=== PATIENT | male | born 1995 | race Caucasian/White ===

== ENCOUNTER 2021-05-21 15:36 | Emergency (ER) | payer SELFPAY ==
[~2021-05-21] VITALS: Ht 177.8 cm; Wt 97.7 kg
[2021-05-21 17:29] LABS: BASOPHILS # (AUTO) 0.1 X10'3 (0-0.2); BASOPHILS % (AUTO) 0.4 % (0-1); EOSINOPHILS # (AUTO) 0.3 X10'3 (0-0.9); EOSINOPHILS % (AUTO) 2.1 % (0-6); HEMATOCRIT 46.4 % (42.0-52.0); HEMOGLOBIN 15.7 g/dl (14.0-17.9); LYMPHOCYTES # (AUTO) 1.5 X10'3 (1.1-4.8); LYMPHOCYTES % (AUTO) 10.4 % (21-51); MEAN CORPUSCULAR HEMOGLOBIN 29.1 PG (27.0-31.0); MEAN CORPUSCULAR HGB CONC 33.9 g/dL (33.0-36.5); MEAN PLATELET VOLUME 8.8 FL (7.4-10.4); MONOCYTES # (AUTO) 0.9 X10'3 (0-0.9); MONOCYTES % (AUTO) 6.1 % (2-12); NEUTROPHILS # (AUTO) 11.3 X10'3 (1.8-7.7); PLATELET COUNT 292 X10'3 (140-440); RED BLOOD COUNT 5.39 X10'6 (4.70-6.10); RED CELL DISTRIBUTION WIDTH 13.6 % (11.5-14.5); WHITE BLOOD COUNT 13.9 X10'3 (4.5-11.0)
[2021-05-21 17:45] LABS: ALANINE AMINOTRANSFERASE 48 U/L (12-78); ALBUMIN 3.9 G/DL (3.4-5.0); ALBUMIN/GLOBULIN RATIO 1.1 (1.1-1.5); ALKALINE PHOSPHATASE 122 IU/L (46-116); ANION GAP 8 (8-16); ASPARTATE AMINO TRANSFERASE 16 U/L (10-37); BILIRUBIN,TOTAL 0.3 MG/DL (0.1-1.0); BLOOD UREA NITROGEN 8 MG/DL (7-18); BUN/CREATININE RATIO 8.2 (5.4-32.0); CHLORIDE 106 MMOL/L (99-107); CREATININE 0.98 MG/DL (0.60-1.10); GLUCOSE 98 MG/DL (70-104); POTASSIUM 4.1 MMOL/L (3.5-5.1); SODIUM 144 MMOL/L (135-145); TOTAL CARBON DIOXIDE 29.6 MMOL/L (24-32); TOTAL PROTEIN 7.4 G/DL (6.4-8.2); eGFR > 90 ML/MIN
[2021-05-21 20:11] VITALS: BP 118/71
== END 2021-05-21 21:56 | disposition home or self-care (01) ==
LOC: ER 15:37
DX: R55 Syncope and collapse (principal); R42 Dizziness and giddiness; R51.9 Headache, unspecified
CPT/HCPCS: 36415; 70450; 71045; 80053; 84484; 85025; 93005; 99285

== ENCOUNTER 2021-12-22 13:47 | Emergency (ER) | payer MEDICAID, OTHER ==
[~2021-12-22] VITALS: Ht 175.3 cm; Wt 93.6 kg
[2021-12-22 14:17] VITALS: BP 130/93
[2021-12-22] MEDS ORDERED: PENI500T2 PO (14:22)
[2021-12-22] MEDS ORDERED: HYDR-3972 PO (14:22)
[2021-12-22] MEDS ORDERED: IBUP-1986 PO (14:22)
== END 2021-12-22 16:48 | disposition home or self-care (01) ==
LOC: ER 13:48
DX: K02.9 Dental caries, unspecified (principal); F12.10 Cannabis abuse, uncomplicated; F17.200 Nicotine dependence, unspecified, uncomplicated; Z79.899 Other long term (current) drug therapy
CPT/HCPCS: 99283

== ENCOUNTER 2022-05-02 00:41 | Emergency (ER) | payer MEDICAID, OTHER ==
[~2022-05-02] VITALS: Ht 180.3 cm; Wt 88.6 kg
[~2022-05-02 00:41] MED LIST: IBUP-1986 PO
[2022-05-02 00:59] VITALS: BP 136/89
[2022-05-02] MEDS: LIDOcaine 1% w/EPI 1:100,000 30ml vial (MDV) IJ ONE ×2 (01:21→01:31)
== END 2022-05-02 01:38 | disposition home or self-care (01) ==
LOC: ER 00:42
DX: K08.89 Other specified disorders of teeth and supporting structures (principal); F12.10 Cannabis abuse, uncomplicated; Z79.1 Long term (current) use of non-steroidal anti-inflammatories (NSAID)
CPT/HCPCS: 99282

== ENCOUNTER 2022-07-25 22:59 | Emergency (ER) | payer SELFPAY ==
[~2022-07-25] VITALS: Ht 175.3 cm; Wt 85.0 kg
[2022-07-26] MEDS ORDERED: morphine IR (immed. release) 30mg tablet PO STA (00:35)
--- NOTE | 2022-07-26 01:19 | NUR ---
discussed giving pt immediate release morphine pill with pt and doctor prior to discharge. Pt states he was recently on a prescription of 15 mg morphine pills at home but finished his prescription a few weeks ago. MD was comfortable with treat and release for this reason. Pt was taken home by father whom was in waiting room.
[2022-07-26 01:22] VITALS: BP 128/84
== END 2022-07-26 01:25 | disposition home or self-care (01) ==
LOC: ER 22:59
DX: K08.89 Other specified disorders of teeth and supporting structures (principal); Z88.5 Allergy status to narcotic agent
CPT/HCPCS: 99283

== ENCOUNTER 2022-07-29 03:55 | Emergency (ER) | payer SELFPAY ==
[~2022-07-29] VITALS: Ht 175.3 cm; Wt 81.8 kg
[2022-07-29 04:08] VITALS: BP 132/77
== END 2022-07-29 08:02 | disposition left against medical advice (07) ==
LOC: ER 03:56
DX: M54.9 Dorsalgia, unspecified (principal); Z53.21 Procedure and treatment not carried out due to patient leaving prior to being seen by health care provider

== ENCOUNTER 2022-08-12 18:23 | Emergency (ER) | payer SELFPAY ==
[~2022-08-12] VITALS: Ht 175.3 cm; Wt 82.6 kg
[2022-08-12 19:45] VITALS: BP 110/60
[2022-08-12] MEDS ORDERED: HYDR-3965 PO (20:08)
[2022-08-12] MEDS ORDERED: AMOX-117 PO (20:08)
[2022-08-12] MEDS ORDERED: amox tr/potassium clavulanate 875/125mg TAB PO ONE (20:10)
[2022-08-12] MEDS ORDERED: HYDROcodone/acetaminophen 5mg/325mg tablet PO ONE (20:10)
== END 2022-08-12 20:30 | disposition home or self-care (01) ==
LOC: ER 18:24
DX: K08.89 Other specified disorders of teeth and supporting structures (principal); F12.90 Cannabis use, unspecified, uncomplicated; Z79.2 Long term (current) use of antibiotics; Z79.899 Other long term (current) drug therapy
CPT/HCPCS: 99283

== ENCOUNTER 2022-09-04 18:25 | Emergency (ER) | payer SELFPAY ==
[~2022-09-04] VITALS: Ht 175.3 cm; Wt 82.2 kg
[2022-09-04 18:48] VITALS: BP 146/91
[2022-09-04] MEDS ORDERED: ondansetron 4mg rapidly disintigrating tab PO ONE (19:25)
[2022-09-04] MEDS ORDERED: HYDROcodone/acetaminophen 10/325mg tab PO ONE (19:25)
== END 2022-09-04 20:12 | disposition home or self-care (01) ==
LOC: ER 18:27
DX: K08.89 Other specified disorders of teeth and supporting structures (principal); F12.10 Cannabis abuse, uncomplicated; Z79.1 Long term (current) use of non-steroidal anti-inflammatories (NSAID)
CPT/HCPCS: 99283

== ENCOUNTER 2022-11-20 19:36 | Emergency (ER) | payer MEDICAID ==
[~2022-11-20] VITALS: Ht 175.3 cm; Wt 81.8 kg
[2022-11-20] MEDS ORDERED: AMOX500C2 PO (21:03)
[2022-11-20] MEDS ORDERED: IBUP-1986 PO (21:03)
[2022-11-20] MEDS ORDERED: amox tr/potassium clavulanate 875/125mg TAB PO ONE (21:05)
[2022-11-20] MEDS ORDERED: ketorolac trometh inj. 60 MG/2 ML VIAL IM ONE (21:05)
[2022-11-20 21:25] VITALS: BP 135/87
== END 2022-11-20 21:26 | disposition home or self-care (01) ==
LOC: ER 19:38
DX: K02.9 Dental caries, unspecified (principal); K08.89 Other specified disorders of teeth and supporting structures
CPT/HCPCS: 96372; 99283; J1885

== ENCOUNTER 2023-07-16 11:01 | Emergency (ER) | payer BC ==
[~2023-07-16] VITALS: Ht 175.3 cm; Wt 75.0 kg
[2023-07-16 11:07] VITALS: BP 136/81; PULSE 70; TEMP 98.6; O2SAT 99
[2023-07-16] MEDS ORDERED: ketorolac trometh. 30mg/ml inj. IM ONE (11:10)
[2023-07-16] MEDS ORDERED: AMOX-117 PO (11:15)
[2023-07-16] MEDS ORDERED: HYDR-3965 PO (11:15)
--- NOTE | 2023-07-16 11:22 | NUR ---
ELECTRICAL RESEARCH ENGINEER ASSESSMENT REVIEWED BY ANDREI RN; APPROVED
[2023-07-16 11:24] VITALS: RESP 18
== END 2023-07-16 11:26 | disposition home or self-care (01) ==
LOC: ER 11:01
DX: K08.89 Other specified disorders of teeth and supporting structures (principal); F12.90 Cannabis use, unspecified, uncomplicated; Z79.1 Long term (current) use of non-steroidal anti-inflammatories (NSAID)
CPT/HCPCS: 96372; 99283; J1885

== ENCOUNTER 2023-08-11 01:07 | Emergency (ER) | payer BC ==
[~2023-08-11] VITALS: Ht 177.8 cm; Wt 70.0 kg
[~2023-08-11 01:07] MED LIST changes: +HYDR-3965 PO
[2023-08-11 01:11] VITALS: BP 119/72; PULSE 69; RESP 16; TEMP 98.2; O2SAT 99
[2023-08-11 02:49] LABS: BASOPHILS # (AUTO) 0.1 X10'3 (0-0.2); BASOPHILS % (AUTO) 0.3 % (0-1); EOSINOPHILS # (AUTO) 0.4 X10'3 (0-0.9); EOSINOPHILS % (AUTO) 2.1 % (0-6); HEMATOCRIT 41.5 % (42.0-52.0); HEMOGLOBIN 13.7 g/dl (14.0-17.9); LYMPHOCYTES # (AUTO) 2.1 X10'3 (1.1-4.8); LYMPHOCYTES % (AUTO) 10.7 % (21-51); MEAN CORPUSCULAR HEMOGLOBIN 29.4 PG (27.0-31.0); MEAN CORPUSCULAR VOLUME 89.2 FL (78-98); MEAN PLATELET VOLUME 8.1 FL (7.4-10.4); MONOCYTES # (AUTO) 1.2 X10'3 (0-0.9); MONOCYTES % (AUTO) 6.2 % (2-12); NEUTROPHILS # (AUTO) 15.9 X10'3 (1.8-7.7); NEUTROPHILS % (AUTO) 80.7 % (42-75); PLATELET COUNT 237 X10'3 (140-440); RED BLOOD COUNT 4.65 X10'6 (4.70-6.10); RED CELL DISTRIBUTION WIDTH 13.8 % (11.5-14.5); WHITE BLOOD COUNT 19.8 X10'3 (4.5-11.0)
[2023-08-11 03:01] LABS: ALANINE AMINOTRANSFERASE 25 U/L (12-78); ALBUMIN 3.6 G/DL (3.4-5.0); ALBUMIN/GLOBULIN RATIO 1.2 (1.1-1.5); ALKALINE PHOSPHATASE 80 IU/L (46-116); ANION GAP 7 (8-16); ASPARTATE AMINO TRANSFERASE 18 U/L (10-37); BILIRUBIN,TOTAL 0.3 MG/DL (0.1-1.0); BLOOD UREA NITROGEN 14 MG/DL (7-18); BUN/CREATININE RATIO 15.2 (10.0-20.0); CALCIUM 8.8 MG/DL (8.5-10.1); CHLORIDE 102 MMOL/L (99-107); CREATININE 0.92 MG/DL (0.60-1.10); GLUCOSE 124 MG/DL (70-104); POTASSIUM 3.1 MMOL/L (3.5-5.1); SODIUM 137 MMOL/L (135-145); TOTAL CARBON DIOXIDE 27.8 MMOL/L (24-32); TOTAL PROTEIN 6.6 G/DL (6.4-8.2); eCRCL 118 ML/MIN; eGFR > 90 ML/MIN
[2023-08-11] MEDS ORDERED: potassium Cl 20 mEq SR tablet PO STA (03:08)
== END 2023-08-11 03:36 | disposition left against medical advice (07) ==
LOC: ER 01:07
DX: S00.31XA Abrasion of nose, initial encounter (principal); R42 Dizziness and giddiness; E87.6 Hypokalemia; W22.8XXA Striking against or struck by other objects, initial encounter; Y93.39 Activity, other involving climbing, rappelling and jumping off; Y92.89 Other specified places as the place of occurrence of the external cause; Y99.8 Other external cause status
CPT/HCPCS: 36415; 80053; 85025; 93005; 99284

== ENCOUNTER → 2023-08-17 | Emergency (ER) | payer BC ==
[~2023-08-17] VITALS: Ht 177.8 cm; Wt 74.8 kg
[2023-08-17 16:08] VITALS: BP 118/66; PULSE 73; RESP 16; TEMP 99; O2SAT 98
== END | disposition left against medical advice (07) ==
LOC: ER 15:59
DX: K08.89 Other specified disorders of teeth and supporting structures (principal); Z53.21 Procedure and treatment not carried out due to patient leaving prior to being seen by health care provider
CPT/HCPCS: 99281

== ENCOUNTER 2023-09-26 19:47 | Emergency (ER) | payer BC ==
[~2023-09-26] VITALS: Ht 177.8 cm; Wt 75.0 kg
[~2023-09-26 19:47] MED LIST changes: -HYDR-3965 PO
[2023-09-26 20:01] VITALS: TEMP 98.3
[2023-09-26] MEDS ORDERED: ketorolac trometh inj. 60 MG/2 ML VIAL IM ONE (20:05)
[2023-09-26] MEDS ORDERED: CLIN300C54 PO (20:06)
[2023-09-26] MEDS ORDERED: HYDR-3965 PO (20:06)
[2023-09-26 20:42] VITALS: BP 109/61; PULSE 64; RESP 16; O2SAT 98
== END 2023-09-26 20:44 | disposition home or self-care (01) ==
LOC: ER 19:48
DX: K08.89 Other specified disorders of teeth and supporting structures (principal); F12.90 Cannabis use, unspecified, uncomplicated; Z79.2 Long term (current) use of antibiotics; Z79.1 Long term (current) use of non-steroidal anti-inflammatories (NSAID); Z79.899 Other long term (current) drug therapy
CPT/HCPCS: 96372; 99283; J1885

== ENCOUNTER 2024-02-27 04:45 | Emergency (ER) | payer BC, OTHER ==
[~2024-02-27] VITALS: Ht 175.3 cm; Wt 72.8 kg
[2024-02-27] MEDS ORDERED: NAPR-56 PO (05:24)
[2024-02-27] MEDS ORDERED: AMOX-580 PO (05:24)
[2024-02-27] MEDS ORDERED: HYDR-3965 PO (05:24)
[2024-02-27] MEDS: ketorolac trometh. 30mg/ml inj. IM ONE (05:48)
[2024-02-27] MEDS: CefTRIAXone 1000mg IM Kit (w/lidocaine diluent) IM ONE (05:48)
[2024-02-27 06:41] VITALS: BP 106/59; PULSE 57; RESP 16; TEMP 97.9; O2SAT 97
== END 2024-02-27 06:43 | disposition home or self-care (01) ==
LOC: ER 04:46
DX: K04.7 Periapical abscess without sinus (principal); K02.9 Dental caries, unspecified; F12.90 Cannabis use, unspecified, uncomplicated; Z79.1 Long term (current) use of non-steroidal anti-inflammatories (NSAID)
CPT/HCPCS: 96372; 99284; J0696; J1885

== ENCOUNTER 2025-04-23 09:23 | Emergency (ER) | payer SELFPAY ==
[~2025-04-23] VITALS: Ht 177.8 cm; Wt 80.0 kg
--- NOTE | 2025-04-23 09:51 | Physician Documentation ---
History of Present Illness Chief Complaint: Abdominal Pain Stated Complaint: ABD PAIN Time Seen by MD: 09:42 Primary Medical Doctor: VIRGILIO Source: patient Mode of Arrival: POV Exam Limitations: no limitations HPI Patient who woke up last night to go to work and had some mild abdominal pain. He did not think a whole lot of it but it just worsened overnight and he has had a lot of vomiting. Pain is generalized and mostly across the bottom and then up the middle. History of appendectomy as a child. States he has never had pain like this since that time. No other surgeries. Does smoke marijuana. No alcohol or tobacco use. Pain is moderate to severe. Medication Reconciliation Allergies: Coded Allergies: No Known Allergies (Unverified , 09/26/23) Scheduled Ibuprofen (Ibuprofen), 1 TAB PO Q8H Ibuprofen (Ibuprofen), 1 TAB PO Q8H Past Medical History Past Medical History: No Pertinent History Past Surgical History: no surgical history Alcohol Use: None Drug Use: marijuana Lives with: Father Lives In: Home Occupation: student Review of Systems All Other Systems at this time: Reviewed and Negative Physical Exam Vital Signs: Temperature: 97.8, Source: Temporal, Heart Rate: 64, Respiratory Rate: 16, BP: 137/82, Pulse Oximetry: 99, Weight: 80.000 Oxygen Flow Rate: 0 General Appearance: alert, other (Uncomfortable appearing) Neck: normal inspection, full range of motion Respiratory: no respiratory distress Chest: no accessory muscle use Gastrointestinal: normal palpation, other (Mildly tender across the top and in the left lower quadrant, negative Collier's) Extremities: normal range of motion, non-tender Neurologic: oriented x4 Psychiatric: normal mood/affect Skin: normal color, warm/dry Progress Results/Orders Results/Orders Orders - NOHEMI BURNETTE MD Urinalysis, Cult If Indicated (04/23/25 09:40) Cbc/Diff (04/23/25 09:40) Lipase (04/23/25 09:40) CMP (04/23/25 09:43) Ondansetron Inj. (Zofran 4mg/2ml Vial) (04/23/25 09:50) Normal Saline 1000ml (0.9% Sodium Chlori (04/23/25 09:50) Ketorolac Trometh 30mg/Ml Vial (Toradol (04/23/25 09:50) Vital Signs 04/23/25 09:37 Temp 97.8 Pulse 64 Resp 16 B/P (MAP) 137/82 Pulse Ox 99 O2 Flow Rate 0 Medical Decision Making Additional Comments Patient in with abdominal pain and vomiting. Could be viral illness. It may be from smoking marijuana. CBC, chemistry, UA, CT scan of the abdomen and pelvis with contrast are unremarkable. Does not look better after fluids, Zofran and Toradol. Discharging home in good condition with care instructions. Follow up with PCP if not improving or return if new or worsening symptoms. Departure Disposition: HOME / SELF CARE / HOMELESS Impression: Primary Impression: Abdominal pain Qualified Codes: R10.84 - Generalized abdominal pain Condition: Improved Discharge Instructions: Abdominal Pain (Nonspecific) Additional Instructions: Follow up with your doctor if not improving. Return if new or worsening sym ptoms. Referrals: NO PRIMARY CARE PROVIDER (PCP) Education Educated: Patient Educated regarding: diagnosis, treatment, prognosis, need for follow up Signature Scribe Signature: No scribe used Attestation: No scribe used NOHEMI BURNETTE MD Apr 23, 2025 09:51
[2025-04-23] MEDS: ketorolac trometh 30MG/ML vial 30 MG/ML VIAL IV ONE (10:10)
[2025-04-23] MEDS: normal saline 1000ml 1,000 ML IV ONE (10:10)
[2025-04-23] MEDS: ondansetron/PF 4mg/2ml inj IV ONE (10:10)
[2025-04-23 10:11] LABS: MEAN PLATELET VOLUME 8.1 FL (7.4-10.4); RED CELL DISTRIBUTION WIDTH 13.9 % (11.5-14.5)
[2025-04-23 10:24] LABS: CREATININE 0.81 MG/DL (0.60-1.10); TOTAL CARBON DIOXIDE 28.2 MMOL/L (24-32); eCRCL 139 ML/MIN; eGFR > 90 ML/MIN
[2025-04-23] MEDS ORDERED: iohexol 300mg/ml 100ml inj. ONE (10:49)
--- NOTE | 2025-04-23 12:29 | RADIOLOGY REPORT ---
Exam: CT CT ABDOMEN PELVIS History: generalized pain and vomiting Comparison Study: None Technique: Multidetector spiral CT of the abdomen and pelvis was performed from lung bases to pubic s ymphysis. Imaging was performed without intravenous contrast. Coronal and sagittal multiplanar reform ats were obtained from the axial data set by the technologist. Radiation Dose : 1. Abdomen/Pelvis: CTDIvol 16.6 mGy, DLP 837.6 mGy*cm. Findings: Evaluation of vasculature and solid organs is limited due to lack of intravenous contrast use. Lung Bases: Lung bases are clear. Visualized portions of the heart and pericardium are unremarkable. Liver: The liver is normal in size. No focal lesions. Periportal edema due to hydration. Gallbladder and Biliary Tree: The gallbladder is unremarkable. No intrahepatic or extrahepatic biliar y ductal dilatation. Spleen: Unremarkable Pancreas: The pancreas is grossly unremarkable. Adrenal Glands: Unremarkable Kidneys: Kidneys are unremarkable without calculi or hydronephrosis. GI tract: The stomach is grossly normal in appearance. No evidence of small bowel wall thickening or abnormal dilatation to suggest bowel obstruction. The colon is unremarkable. The appendix is not visu alized and may be surgically absent. Peritoneum/mesentery/retroperitoneum. No evidence of free intraperitoneal air. No ascites. No evidenc e of suspicious lymphadenopathy. Abdominal Wall: Unremarkable. Vasculature: The visualized abdominal aorta is normal in size and caliber. Evaluation of abdominal a nd pelvic vessels is limited due to lack of intravenous contrast. Urinary Bladder: Grossly unremarkable for degree of distention. Pelvic Organs: Unremarkable Musculoskeletal: No aggressive focal bony lesions, acute fractures or dislocation. There is intervert ebral disc space narrowing at L5-S1. IMPRESSION: 1. No acute abdominal or pelvic findings. 2. Findings suggesting prior appendectomy. Please correlate with surgical history.
[2025-04-23 12:50] LABS: LEUKOCYTE ESTERASE ,URINE NEGATIVE (Neg); NITRITES, URINE NEGATIVE (Neg); OCCULT BLOOD,URINE NEGATIVE (Neg)
[2025-04-23 12:52] LABS: UA COLLECTION TYPE NON-SPECIFIED
[2025-04-23 12:59] LABS: SQUAMOUS EPITHELIAL CELL,UR FEW /LPF (FEW)
[2025-04-23 13:00] LABS: AMORPHOUS PHOSPHATES 2+; MUCUS STRANDS NONE SEEN /LPF (Neg)
[2025-04-23 13:06] VITALS: BP 125/73; PULSE 55; RESP 19; TEMP 97.8; O2SAT 98
== END 2025-04-23 13:12 | disposition home or self-care (01) ==
LOC: ER 09:23
DX: R10.84 Generalized abdominal pain (principal); F12.90 Cannabis use, unspecified, uncomplicated; Z90.49 Acquired absence of other specified parts of digestive tract; Z79.899 Other long term (current) drug therapy
CPT/HCPCS: 36415; 74177; 80053; 81001; 83690; 85025; 96361; 96374; 96375; 99285; J1885; J2405; J7030; Q9967